=== PATIENT | female | born 1930 | race Caucasian/White ===

== ENCOUNTER 2018-03-20 09:56 | Observation (INO) ==
--- NOTE | 2018-03-20 10:25 | Emergency Department Note ---
Disposition Clinical Impression: Sick sinus syndrome Disposition: Admitted As Inpatient Condition: Fair Time of Disposition: 11:58 Arrhythmia/Palpitations HPI - General Chief Complaint: ED Arrhythmia/Palpitations Stated Complaint: chest pressure Time Seen by Provider: 03/20/18 10:13 Source: patient, EMS Mode of arrival: EMS Limitations: no limitations Nursing Notes Reviewed: Yes Vital Signs Reviewed: Yes - History of Present Illness HPI Narrative: 88-year-old female presents emergency department with concern for having palpitations and dizziness. Patient reported having that this morning. Brought in by EMS. Reported heart rate went to A. fib with RVR in the 170s. Stated that she also bradycardia down into the 30s. Patient reporting no symptoms at this time. No chest pain, pressure, tightness, shortness of breath. No nausea or vomiting. Does report history of having a stent. States that she was told at one time that she may have A. fib with RVR, but a leg assembler that she had a [place] confirm that it was not. - Related Data Allergies Allergy/AdvReac Type Severity Reaction Status Date / Time acetaminophen [From Vicodin] Allergy Palpitation Verified 03/20/18 10:24 s hydrocodone [From Vicodin] Allergy Palpitation Verified 03/20/18 10:24 s metronidazole [From Flagyl] Allergy Rash Verified 03/20/18 10:24 All systems ED: reviewed and negative except as stated. Review of Systems: As Per HPI Constitutional: Denies: fever Cardiovascular: Reports: palpitations. Denies: syncope Respiratory: Denies: cough, dyspnea, wheezes Gastrointestinal: Denies: abdominal pain, nausea, vomiting Genitourinary: Denies: urgency, dysuria, frequency Musculoskeletal: Denies: back pain Integumentary: Denies: rash Neurological: Reports: other (dizziness) Endocrine: Denies: fatigue Past Medical History - Past Medical History Medical history: Reports: atrial fibrillation, cancer, hyperlipidemia, hypertension, myocardial infarction Psychiatric history: Reports: no psych history - Social History Smoking Status: Former smoker Alcohol use: Reports: none Drug use: Reports: none Physical Exam - General General appearance: alert, in no apparent distress - Head Head exam: normocephalic - Eye Eye exam: Present: EOMI - ENT ENT exam: normal oropharynx - Neck Neck exam: Present: trachea midline - Chest Chest inspection: Present: symmetric chest wall rise - Respiratory Respiratory exam: Present: normal lung sounds bilaterally. Absent: respiratory distress - Cardiovascular Cardiovascular exam: Present: regular rate, normal rhythm, normal heart sounds - Abdominal Exam Abdominal exam: Present: soft, Non-Tender. Absent: distention, guarding, rebound, rigidity - Extremities Exam Extremities exam: Present: normal capillary refill - Back Exam Back exam: Present: normal inspection - Neurological Exam Neurological exam: Present: alert, oriented X3 - Psychiatric Psychiatric exam: Present: normal affect, normal mood - Skin Skin exam: Present: warm, dry, intact, normal color. Absent: rash Course Vital Signs Temperature 97.3 F L 03/20/18 10:05 Pulse Rate 72 03/20/18 10:05 Respiratory Rate 19 03/20/18 10:05 Blood Pressure 117/53 03/20/18 10:05 O2 Sat by Pulse Oximetry 94 03/20/18 10:05 Temperature 97.3 F L 03/20/18 10:05 Pulse Rate 69 03/20/18 11:06 Respiratory Rate 20 03/20/18 11:06 Blood Pressure 104/42 03/20/18 11:06 O2 Sat by Pulse Oximetry 94 03/20/18 11:06 Oxygen Delivery Oxygen Delivery Room Air Arrhythmia/Palpitations - [facility] Narrative Medical decision making narrative: 88 year old female presents to the emergency department with concern for palpitations, dizziness, with concern for heartrate in the 170s bradying down into the 30s. Our ECG reveals concerns for sick sinus syndrome. Troponin is within normal limits. Chest x-ray is normal. Patient has mild elevated creatinine at 1.34. No. He states he compare to. Gave patient 1 L of fluids. Normal saline. I spoke with the leg assembler, Dr. Cat. He requested that patient be held nothing by mouth at this time. Patient met the hospital as Dr. Wyatt who agreed to accept patient for admission. Patient agree with plan. Was heme an amply stable, heart rate in the 80s throughout her emergency department stay with no symptoms of palpitations, dizziness, chest tightness. Chest X-Ray 03/20/18 10:23 IMPRESSION: No acute process. D/ / Sai Echeverria MD / Sai Echeverria MD Interpreting Provider: Sai Echeverria MD Vital Signs Temperature 97.3 F L 03/20/18 10:05 Pulse Rate 72 03/20/18 10:05 Respiratory Rate 19 03/20/18 10:05 Blood Pressure 117/53 03/20/18 10:05 O2 Sat by Pulse Oximetry 94 03/20/18 10:05 Temperature 97.3 F L 03/20/18 10:05 Pulse Rate 69 03/20/18 11:06 Respiratory Rate 20 03/20/18 11:06 Blood Pressure 104/42 03/20/18 11:06 O2 Sat by Pulse Oximetry 94 03/20/18 11:06 Oxygen Delivery Oxygen Delivery Room Air - Lab Data Result diagrams: 03/20/18 10:08 03/20/18 10:08 Lab Results 03/20/18 03/20/18 03/20/18 Range/Units 10:08 10:08 10:08 WBC 12.7 H (4.3-11.1) K/mcL RBC 5.16 H (3.82-4.97) M/mcL Hgb 15.6 H (11.5-15.4) g/dL Hct 47.1 H (35.3-44.9) % MCV 91.3 (83.0-100.0) fL MCH 30.2 (28.0-33.3) pg MCHC 33.1 (31.6-35.5) g/dL RDW 14.0 (11.5-14.5) % Plt Count 276 (140-400) K/mcL MPV 12.1 (9.4-12.4) fL Immature Gran % 0.5 (0-4) % Seg Neutrophils % 67.2 % Lymphocytes % 21.7 % Monocytes % 7.6 % Eosinophils % 2.8 % Basophils % 0.2 % Neutrophils # 8.5 (1.6-8.9) K/mcL Lymphocytes # 2.8 (0.6-4.6) K/mcL Monocytes # 1.0 (0.0-1.3) K/mcL Eosinophils # 0.4 (0.0-0.6) K/mcL Basophils # 0.0 (0.0-0.2) K/mcL PT 10.8 (9.4-12.1) Seconds INR 1.0 APTT 28.2 (26.0-36.0) Seconds Sodium 136 (136-145) mEq/L Potassium 3.5 (3.5-5.1) mEq/L Chloride 98 (98-107) mEq/L Carbon Dioxide 29 (23-29) mEq/L BUN 36 H (8-23) mg/dL Creatinine 1.34 H (0.60-1.20) mg/dL Est GFR ( Amer) 45 L (> 60) Est GFR (Non-Af Amer) 37 L (> 60) BUN/Creatinine Ratio 27 H (6-26) Glucose 173 H (70-105) mg/dL Calculated Osmolality 294 (280-300) Calcium 9.5 (8.6-10.3) mg/dL Troponin I 0.03 (< 0.04) ng/mL - EKG Data EKG attestation: Yes I reviewed and interpreted this EKG. EKG results narrative: EKG #1 10:09 Heart rate: Variable from the 150s to 60 bpm. MI 141 ms, QRS duration 85 ms, QT 313 ms, normal axis. A. fib with RVR with sinus bradycardia. Concern for sick sinus syndrome. EKG #2 10:09 same as previous EKG. Concern for sick sinus syndrome. Attestation Statement - Attestation Attestation: I examined this patient and my medical decision-making was reviewed with the Resident Physician, Dr. Salazar. I agree with the documented findings, disposition and treatment plan as described except to the extent set forth below. Patient is an 88-year-old white female with a history of known coronary disease with remote heart catheter who presents the emergency department by EMS today after she experienced sudden onset palpitations chest tightness, mild shortness of breath and diaphoresis. Patient had been feeling fine prior to this episode and said she "just did not feel right". Patient is feeling better now states the symptoms have resolved and she is "feeling much better". Currently denies any chest pain pressure or heaviness. Patient denies any history of rapid or slow heart rates and no irregular heart rates although she states she was told at one time that she had an irregular heartbeat after follow-up with her leg assembler she was told that her heart was fine. Patient is from [place] and she is here visiting her brother and does have an established leg assembler that she sees in the [facility]. I agree with patient's physical exam findings as documented. Vital signs are stable. On my assessment patient's resting comfortably at bedside with no complaints. It was reported by EMS that she had a heart rate in the 170s at one point in route to the ED and then had profound bradycardia in the 30s. Her EKG here did catch this transition from a tachycardia to bradycardia. During my assessment patient was normal sinus rhythm in the 80s and stable with no tachycardia or bradycardia. Patient was placed on pacer pads and cardiac monitoring IV was established she was provided aspirin and we had a full lab evaluation including cardiac studies and chest x-ray. Overall patient's workup in the ED is unremarkable and she is remained with a normal heart rate and blood pressure since arrival. Concerned with possible tachybradycardia syndrome explaining her symptoms prior to arrival. Patient will be admitted for further evaluation and cardiology was consulate from the ED. Patient remains hemodynamically stable at this time and he symptomatic.
[2018-03-20 10:32] LABS: Basophils % 0.2 %; Eosinophils # 0.4 K/mcL (0.0-0.6); Eosinophils % 2.8 %; Hematocrit 47.1 % (35.3-44.9); Hemoglobin 15.6 g/dL (11.5-15.4); Immature Granulocytes % 0.5 % (0-4); Lymphocytes # 2.8 K/mcL (0.6-4.6); Lymphocytes % 21.7 %; Mean Corpuscular HGB Conc 33.1 g/dL (31.6-35.5); Mean Corpuscular Hemoglobin 30.2 pg (28.0-33.3); Mean Corpuscular Volume 91.3 fL (83.0-100.0); Mean Platelet Volume 12.1 fL (9.4-12.4); Monocytes % 7.6 %; Neutrophils # 8.5 K/mcL (1.6-8.9); Platelet Count 276 K/mcL (140-400); Red Blood Count 5.16 M/mcL (3.82-4.97); Segmented Neutrophils % 67.2 %
[2018-03-20 10:37] LABS: Prothrombin Time 10.8 Seconds (9.4-12.1)
[2018-03-20 10:40] LABS: Activated Partial Thrombo Time 28.2 Seconds (26.0-36.0)
[2018-03-20 10:58] LABS: Calcium 9.5 mg/dL (8.6-10.3); Potassium 3.5 mEq/L (3.5-5.1); Troponin I 0.03 ng/mL (< 0.04)
[2018-03-20] MEDS ORDERED: 0.9 % Sodium Chloride 1,000 ML IVC ONE (10:59)
[2018-03-20 12:20] LABS: Thyroid Stimulating Hormone 1.207 mcIU/mL (0.340-5.600)
[2018-03-20] MEDS ORDERED: Naloxone 0.4 MG/ML INJ IVP PRN (13:17)
--- NOTE | 2018-03-20 13:23 | Electrophysiology Consult Note ---
Addendum entered and electronically signed by Stef Dupont CNP 03/22/18 09:42 : Up-date on EP recommendations, initial recommendation to start amiodarone by cardiology cafeteria monitor, once patient discussed with Dr. Nielsen he did not recommend amiodarone and agreed it should be discontinued. Patient was recommended to start beta-lisa after she spontaneously converted to NSR and no recurrent bradycardia was seen. She was recommended to start terminal system operator AC with eliquis as discussed. Addendum entered and electronically signed by Stef Dupont CNP 03/20/18 14:03 : EKG from ED reviewed. HR 119, atrial fibrillation with RVR, ST depression in inferior leads. QT/Qtc 313/441. Repeat EKG shows afib with RVR converting to sinus bradycardia with HR 30. Currently NSR. Start amiodarone. . Original Note: <Stef Dupont - Last Filed: 03/20/18 13:53> Date of Encounter: 03/20/18 Time of Encounter: 13:21 Assessment and Plan (1) Atrial fibrillation Status: Suspected Presents with new atrial fibrillation- reported to have afib with RVR and periods of slow ventricular response in ED. Appears to be new onset two days ago per symptoms. Awaiting reports to be sent up from ED. Recommended to start amiodarone with known history of CAD and bradycardia per general cardiology, discussed with Dr. Cat. Will start amiodarone once EKG available. TSH normal. Check TTE CHADS VASc= 5 (HTN, age2, gender, CAD). High risk for CVA. I discussed AC with coumadin verses NOAC. She agrees to start a NOAC and does not want coumadin. Eliquis sent to pharmacy for lynn check. WIll start lovenox in the meantime in case she needs any procedures during her stay. I will discuss further recommendations with Dr. Reddy Nielsen. Qualifiers: Atrial fibrillation type: unspecified Qualified Code(s): I48.91 - Unspecified atrial fibrillation (2) Tachy-denise syndrome Status: Acute Recommend trying rhythm control. If continued significant bradycardia will need to consider PPM. Discussion w patient/family: The assessment and plan as outlined above was discussed with the patient and/or family members who expressed understanding and agreement. All questions were answered. Thank you for involving us in the care of your patient. Please call with any questions. History of Present Illness Consult date: 03/20/18 Requesting physician: Cruzito Salazar Consult reason: new onset afib. Chief complaint: lightheadedness, chest tightness, SOB History of present illness: Ms. Jacobs is a 88 year old female with past medical history of PCI to her RCA in 2010, HTN, and HLD who presented with the c/o feeling lightheaded, SOB, and chest tightness for two days. She was found to have atrial fibrillation with slow ventricular response at times in the ED. She was recommended to start amiodarone by cardiology team and have EP consult. She denies prior history of afib or other arrhythmias. She traveled here three weeks ago to visit her brother and is planning on flying back Sunday. When she arrived here she developed cough and congestion. She was started on steroids and z-pack with improvement of her symptoms. Past Med Surg Social Fam HX - Past Medical History Attestation: Yes The following information was validated with the patient. Source: patient Medical history: cancer, hyperlipidemia, hypertension, myocardial infarction Psychiatric history: no psych history - Social History Smoking Status: Former smoker Alcohol use: none Drug use: none Medications and Allergies Amlodipine Besylate 10 mg PO DAILY 03/20/18 [History] Atorvastatin Calcium [Lipitor] 20 mg PO QPM 03/20/18 [History] Brimonidine Tartrate [Alphagan P] 1 drop LEFT EYE DAILY 03/20/18 [History] Clopidogrel [Plavix] 75 mg PO DAILY 03/20/18 [History] Dorzolamide/Timolol [Cosopt] 1 drop LEFT EYE DAILY 03/20/18 [History] Fluticasone Propionate Nasal [Flonase] 2 spr NS DAILY PRN 03/20/18 [History] Latanoprost [Xalatan] 1 drop LEFT EYE HS 03/20/18 [History] Losartan/Hydrochlorothiazide [Losartan-Hctz 100-25 mg Tab] 1 tab PO DAILY [History] Rabeprazole Sodium [Aciphex] 20 mg PO DAILY 03/20/18 [History] Metoprolol [Lopressor] 25 mg PO BID 30 Days #60 tablet 03/22/18 [Rx] 3 Allergy/AdvReac Type Severity Reaction Status Date / Time acetaminophen [From Vicodin] Allergy Palpitation Verified 03/20/18 10:24 s hydrocodone [From Vicodin] Allergy Palpitation Verified 03/20/18 10:24 s metronidazole [From Flagyl] Allergy Rash Verified 03/20/18 10:24 All Systems Review: The remainder of the systems were reviewed and are negative Physical Examination Vital Signs, Last 4 Hours Temp Pulse Resp BP Pulse Ox 03/20/18 12:45 98.7 F 74 16 123/70 96 03/20/18 12:07 18 111/53 General: Conversant, No Apparent Distress HEENT: Atraumatic, Normocephaly, Mucus Membranes Moist Neck: No JVD, Normal carotid pulses Cardiac: Other (Irregular) Lungs: Normal Breath Sounds, No Wheeze, Rales, Rhonchi Neuro: Alert and responsive, No focal deficits noted Abdomen: Soft, Non-Tender Skin: No rashes noted on visualized skin Musculoskeletal: No Chest Wall Tenderness Extremities: No Clubbing, No Cyanosis, No Edema, Normal Pulses Results 03/20/18 10:08 03/20/18 10:08 - Imaging and Cardiology Echo: report reviewed Consult Discharge Plan - Plan Instructions: Pacemaker (DC) Referrals: NONE,PCP [Primary Care Provider] - Prescriptions: Metoprolol [Lopressor] 25 mg PO BID 30 Days #60 tablet <Reddy Nielsen - Last Filed: 03/22/18 16:14> Date of Encounter: 03/22/18 - Attending Attestation I have personally performed a face to face evaluation on this patient. I have reviewed and agree with the care plan. History and Exam by me shows: New AF, had now converted to NSR. Would recommend anticoagulation and oral BBblocker. Can fu with primary welding machine operator ultrasonic. Assessment and Plan Discussion w patient/family: The assessment and plan as outlined above was discussed with the patient and/or family members who expressed understanding and agreement. All questions were answered. Thank you for involving us in the care of your patient. Please call with any questions. History of Present Illness History of present illness: Ms. Jacobs is a 88 year old female All Systems Review: The remainder of the systems were reviewed and are negative Physical Examination Vital Signs, Last 4 Hours Temp Pulse Resp BP Pulse Ox 03/22/18 15:22 98.0 F 46 18 94/52 96 Results 03/21/18 00:31 03/21/18 00:31
--- NOTE | 2018-03-20 13:34 | Internal Med History&Physical ---
Date of Encounter: 03/20/18 Time of Encounter: 12:30 Internal Medicine - H&P: HPI Chief complaint: Palpitations/Lightheadedness/Chest Pressure Admitted From: Home Plans for Post Hospital Care: Home History of present illness: Ms. Jacobs is a 88 year old female with past medical history significant for CAD with stent x1 in 2010, hypertension, hyperlipidemia, glaucoma, and acid reflux who presents for palpitations, lightheadedness, shortness of breath, and chest tightness that started today. She reports two episodes lasting only a few seconds. Denies any current treatment. No alleviating or exacerbating factors. Reports one other similar episode 2-3 days ago for same duration. Denies associated nausea, vomiting, abdominal pain, bowel or bladder changes. Currently asymptomatic and pain free at this time. Has been told by PCP that she has an irregular heart rhythm, but reports her youth director assures her that she does not. Patient is from [place], in town visiting [facility]. Follows with cardi[phone], last seen in January with a normal routine 6 month follow up. Reports having normal stress test and echocardiogram sometime last year. Was recently treated for respiratory infection with Azithromycin and Prednisone which she completed last dose Sunday and states her symptoms have completely resolved. ER reported EKG as atrial fibrillation with RVR with concerns for sick sinus syndrome, reported heart rate range from 30-170. Patient denies any known history of atrial fibrillation or decreased renal function. Cardiology at bedside at time of admission. Discussed patient with Dr Aragon. Past Med Surg Social Fam HX - Past Medical History Medical history: GERD, glaucoma, hyperlipidemia, hypertension, myocardial infarction Psychiatric history: no psych history - Social History Smoking Status: Former smoker Alcohol use: none Drug use: none Internal Medicine - H&P: Meds Amlodipine Besylate 10 mg PO DAILY 03/20/18 [History] Atorvastatin Calcium [Lipitor] 20 mg PO QPM 03/20/18 [History] Brimonidine Tartrate [Alphagan P] 1 drop LEFT EYE DAILY 03/20/18 [History] Clopidogrel [Plavix] 75 mg PO DAILY 03/20/18 [History] Dorzolamide/Timolol [Cosopt] 1 drop LEFT EYE DAILY 03/20/18 [History] Fluticasone Propionate Nasal [Flonase] 2 spr NS DAILY PRN 03/20/18 [History] Latanoprost [Xalatan] 1 drop LEFT EYE HS 03/20/18 [History] Losartan/Hydrochlorothiazide [Losartan-Hctz 100-25 mg Tab] 1 tab PO DAILY [History] Rabeprazole Sodium [Aciphex] 20 mg PO DAILY 03/20/18 [History] 3 Allergy/AdvReac Type Severity Reaction Status Date / Time acetaminophen [From Vicodin] Allergy Palpitation Verified 03/20/18 10:24 s hydrocodone [From Vicodin] Allergy Palpitation Verified 03/20/18 10:24 s metronidazole [From Flagyl] Allergy Rash Verified 03/20/18 10:24 All Systems PM: A 10-system review of systems was performed and is negative for pertinent findings except as documented above in the HPI. - Constitutional Vitals: Temp Pulse Resp BP Pulse Ox 98.7 F 74 16 123/70 96 03/20/18 12:45 03/20/18 12:45 03/20/18 12:45 03/20/18 12:45 03/20/18 12:45 Exam: General: Alert and oriented. Skin:Normal color, no rash, no lesions. HEENT:Pupils equal, round and reactive. Cardiovascular:Irregular rhythm. Normal S1 & S2, no rubs, murmurs or gallops. No JVD. Pulse regular. Lungs:Normal breath sounds, no wheezes or crackles. Abdomen:Soft, non-tender, no rigidity. Extremities:No deformity, no edema or tenderness, no joint swelling or clubbing. Neurological:Normal cognition and motor skills. Pulses:Carotid and radial pulses normal +2. Rest of the physical exam is non contributory. Internal Med - H&P Results - Labs CBC & Chem 7: 03/20/18 10:08 03/20/18 10:08 - Assessment and plan (1) Sick sinus syndrome Current Visit: Yes Status: Acute Assessment and plan: Cardiology consulted by ER, will await recommendations. Continuous wool fleece sorter. Cardiac diet, NPO at midnight. (2) Chest tightness Current Visit: Yes Status: Acute Assessment and plan: Initial troponin in ER negative, serial troponins ordered. Cardiology consulted. (3) Atrial fibrillation Current Visit: Yes Status: Suspected Assessment and plan: Cardiology consulted. Continuous wool fleece sorter. Qualifiers: Atrial fibrillation type: unspecified Qualified Code(s): I48.91 - Unspecified atrial fibrillation (4) Decreased renal function Current Visit: Yes Status: Acute Assessment and plan: Repeat labs in a.m. Encourage oral intake. (5) Increased white blood cell count Current Visit: Yes Status: Acute Assessment and plan: Suspected secondary to recent respiratory infection treatment. No suspected infection at this time. Repeat labs in a.m. Qualifiers: Leukocytosis type: unspecified Qualified Code(s): D72.829 - Elevated white blood cell count, unspecified - Time Spent With Patient Total time spent is greater than 50% in coordination of care (as documented) at patient's floor/unit and/or counseling patient:
[2018-03-20] MEDS ORDERED: *HR* Amiodarone 200 MG TABLET PO SCH (13:45)
[2018-03-20] MEDS ORDERED: Fluticasone Propionate Nasal 50 MCG/SPRAY BOTTLE NS PRN (13:47)
[2018-03-20] MEDS ORDERED: *HR* Enoxaparin 80 MG/0.8 ML SYRINGE SQ ONE (14:20)
[2018-03-20] MEDS ORDERED: *HR* Enoxaparin 80 MG/0.8 ML SYRINGE SQ SCH (18:00)
[2018-03-20] MEDS: Latanoprost 2.5 ML BOTTLE LEFT EYE SCH (19:58)
[2018-03-21 00:49] LABS: Basophils # 0.1 K/mcL (0.0-0.2); Basophils % 0.4 %; Eosinophils # 0.5 K/mcL (0.0-0.6); Eosinophils % 4.2 %; Hematocrit 42.7 % (35.3-44.9); Hemoglobin 14.1 g/dL (11.5-15.4); Immature Granulocytes % 0.2 % (0-4); Lymphocytes # 3.5 K/mcL (0.6-4.6); Mean Corpuscular Hemoglobin 30.1 pg (28.0-33.3); Mean Corpuscular Volume 91.2 fL (83.0-100.0); Monocytes % 7.8 %; Neutrophils # 7.8 K/mcL (1.6-8.9); Platelet Count 225 K/mcL (140-400); Red Blood Count 4.68 M/mcL (3.82-4.97); Red Cell Distribution Width 13.9 % (11.5-14.5); Segmented Neutrophils % 60.4 %
[2018-03-21 01:04] LABS: BUN/Creatinine Ratio 31 (6-26); Blood Urea Nitrogen 31 mg/dL (8-23); Calcium 9.1 mg/dL (8.6-10.3); Carbon Dioxide 24 mEq/L (23-29); Chloride 103 mEq/L (98-107); Glucose 121 mg/dL (70-105); Osmolality,Calculated 294 (280-300); Potassium 3.7 mEq/L (3.5-5.1); Sodium 138 mEq/L (136-145); eGFR For Non-African Americans 52 (> 60)
[2018-03-21] MEDS ORDERED: *HR* Enoxaparin 80 MG/0.8 ML SYRINGE SQ SCH (06:00)
[2018-03-21] MEDS: amLODIPine 5 MG TABLET PO SCH (09:27)
[2018-03-21] MEDS: Losartan/HCTZ 50-12.5 TABLET PO SCH (09:27)
[2018-03-21] MEDS: Dorzolamide/Timolol OPTH 10 ML BOTTLE LEFT EYE SCH (09:34)
--- NOTE | 2018-03-21 11:41 | Electrophysiology ProgressNote ---
Date of Encounter: 03/21/18 Time of Encounter: 11:39 Assessment and Plan (1) Atrial fibrillation Current Visit: Yes Status: Suspected Presents with new onset atrial fibrillation- reported to have afib with RVR and periods of slow ventricular response in ED. Appears to be new onset two days ago per symptoms.Likely exacerbated by bronchitis. HR 145-30 bpm in ED. EKG shows atrial fibrillation with RVR and conversion to sinus bradycardia. Telemetry overnight shows NSR with no recurrent afib. Avg HR was 75 bpm. Lowest HR 50 bpm during nocturnal hours. TTE-LVEF 60%. Moderate left ventricular diastolic dysfunction. Normal right ventricular structure and function. Mildly dilated left atrium. Moderately thickened mitral valve leaflets. No evidence of pulmonary hypertension. TSH normal. Troponin negative x3. Recommend keeping her out of afib to avoid bradycardia that occurs when she converts to SR. Declines amiodarone. Discussed with Dr. Nielsen, we will start metoprolol 25 mg BID to help her maintain NSR. CHADS VASc= 5 (HTN, age2, gender, CAD). High risk for CVA. I discussed AC with coumadin verses NOAC. She agrees to start a NOAC and does not want coumadin. Eliquis RX filled and at bedside. Recommend stopping plavix and starting eliquis. Last PCI in 2010. She would like to hold off on starting eliquis until she returns home in [place]. She would like to continue asa and plavix for now. She voices understanding of increased risk of CVA. She is flying home sunday and will call her security lead as soon as she gets home. Cardiology will likely sign off after she is seen by Dr. Nielsen today. Call with questions. Qualifiers: Atrial fibrillation type: unspecified Qualified Code(s): I48.91 - Unspecified atrial fibrillation (2) Tachy-denise syndrome Current Visit: Yes Status: Acute See plan above. Discussion w patient/family: The assessment and plan as outlined above was discussed with the patient and/or family members who expressed understanding and agreement. All questions were answered. Thank you for involving us in the care of your patient. Please call with any questions. Subjective Principal diagnosis: tachybrady syndrome Interval history: Ms. Jacobs states that she is feeling better. Denies chest pain or palpitations. She declined to take amiodarone as recommended. Objective Vital Signs, Last 4 Hours Temp Pulse Resp BP Pulse Ox 03/21/18 10:38 97.6 F 70 18 151/68 97 03/21/18 07:57 99.0 F 78 18 128/70 95 General: Conversant, No Apparent Distress HEENT: Atraumatic, Normocephaly, Mucus Membranes Moist Neck: No JVD, Normal carotid pulses Cardiac: Reg Rate and Rhythm, Normal S1 and S2, No Murmur Lungs: Normal Breath Sounds, No Wheeze, Rales, Rhonchi Neuro: Alert and responsive, No focal deficits noted Abdomen: Soft, Non-Tender Skin: No rashes noted on visualized skin Musculoskeletal: No Chest Wall Tenderness Extremities: No Clubbing, No Cyanosis, No Edema, Normal Pulses Results 03/21/18 00:31 03/21/18 00:31 Lab Results 03/20/18 03/21/18 03/21/18 18:00 00:31 00:31 WBC 12.9 H Hgb 14.1 D Hct 42.7 Plt Count 225 Sodium Potassium Chloride Carbon Dioxide BUN Creatinine Glucose Calcium Troponin I 0.03 0.03 03/21/18 00:31 WBC Hgb Hct Plt Count Sodium 138 Potassium 3.7 Chloride 103 Carbon Dioxide 24 BUN 31 H Creatinine 1.01 Glucose 121 H Calcium 9.1 Troponin I - Imaging and Cardiology Echo: report reviewed - EKG Interpretation EKG results cardiology: personally reviewed Consult Discharge Plan - Plan Referrals: NONE,PCP [Primary Care Provider] -
--- NOTE | 2018-03-21 14:23 | Electrocardiograph Report ---
[place] [address] Test Date: 2018-03-20 Pat Name: Haylee Jacobs Department: EXAM12 Room: 2A14 Gender: F Assistant Men'S Soccer Coach: : 1930 Requested By: Cruzito Salazar Order Number: [id number] Reading MD: Robert Oh Measurements Intervals [place] Rate: 128 P: MD: QRS: 82 QRSD: 85 T: 248 QT: 286 QTc: 418 Interpretive Statements Atrial fibrillation Repolarization abnormality, prob rate related Electronically Signed On 03-21-2018 14:21:49 EDT by Robert hO
--- NOTE | 2018-03-21 14:33 | Electrocardiograph Report ---
[address] [place] [address] Test Date: 2018-03-20 Pat Name: Haylee Jacobs Department: 109 Room: 2A14 Gender: Apprentice Plumber: : 1930 Requested By: Simon Aragon Order Number: [id number] Reading MD: Robert Oh Measurements Intervals [place] Rate: 63 P: CO: 0 QRS: 24 QRSD: 119 T: 269 QT: 447 QTc: 455 Interpretive Statements ATRIAL FIBRILLATION INCOMPLETE RIGHT BUNDLE BRANCH BLOCK NONSPECIFIC T WAVE ABNORMALITIES Electronically Signed On 03-21-2018 14:32:40 EDT by Robert Oh
--- NOTE | 2018-03-21 15:38 | Internal Med Progress Note ---
Hospitalist Progress Note - Encounter Date of Encounter: 03/21/18 Time of Encounter: 15:35 - Subjective Interval History: Patient seen and evaluated at bedside. She reports feeling well, denies chest pain, or shortness of breath. Also denied lightheadedness or dizziness. - Exam Vitals: Temp Pulse Resp BP Pulse Ox 97.6 F 70 18 151/68 97 03/21/18 10:38 03/21/18 10:38 03/21/18 10:38 03/21/18 10:38 03/21/18 10:38 Exam: General: Alert and oriented x4. in no acute distress. Cardiovascular: RRR, Normal S1 & S2, no rubs, murmurs or gallops. JVD about 6cm. Lungs: CTA bilaterally, no wheezes or crackles. Abdomen: Obese, Soft, non-tender, no rigidity. Extremities: No deformity, no edema or tenderness, no joint swelling or clubbing. Neurological: Normal cognition and motor skills. Rest of the physical exam is non contributory - Assessment and Plan (1) Atrial fibrillation Current Visit: Yes Status: Acute Assessment and Plan: Patient evaluated by the tobacco sample puller who recommended to start the patient on oral anticoagulant due to High CHADSVASC score, also started the patient on metoprolol 25 mg by mouth twice a day. Patient preferred to start on an anticoagulant after discussing with her notch machine operator in [place]. Will keep patient in the hospital today for 24 more hours of telemetry monitoring. Plan to be DC tomorrow morning. (2) Tachy-denise syndrome Current Visit: Yes Status: Acute Assessment and Plan: Plan of care as above (3) Leukocytosis Current Visit: Yes Status: Acute Assessment and Plan: No signs of acute infection. Patient recently treated with PO steroids and azithromycin for a bronchitis (4) CAROL (acute kidney injury) Current Visit: Yes Status: Suspected (5) CAD (coronary artery disease) Current Visit: Yes Status: Acute Assessment and Plan: Continue plavix and atorvastatin. (6) HTN (hypertension) Current Visit: Yes Status: Acute Assessment and Plan: BP well controlled. Continue Amlodipine and HCTZ/losartan. DVT Prophylaxis: On full dose lovenox due to A.Fib. - Summary of Assessment and Plan Summary of Assessment and Plan: Patient to remain in the hospital for 24 more hours to telemetry monitoring. Potential DC tomorrow. - Time Spent with Patient Total time spent is greater than 50% in coordination of care (as documented) at patient's floor/unit and/or counseling patient: 25 - 35 minutes Plan of Care Discussed with: patient (the nurse.) Internal Medicine: Result - Labs CBC & Chem 7: 03/21/18 00:31 03/21/18 00:31 Labs: Short CBC 03/21/18 Range/Units 00:31 WBC 12.9 H (4.3-11.1) K/mcL Hgb 14.1 D (11.5-15.4) g/dL Hct 42.7 (35.3-44.9) % Plt Count 225 (140-400) K/mcL Neutrophils # 7.8 (1.6-8.9) K/mcL BMP 03/21/18 00:31 Sodium 138 Potassium 3.7 Chloride 103 Carbon Dioxide 24 BUN 31 H Creatinine 1.01 Glucose 121 H Calcium 9.1 Cardiac Enzymes 03/20/18 03/21/18 Range/Units 18:00 00:31 Troponin I 0.03 0.03 (< 0.04) ng/mL - ABG Interpretation ABG results: PT/INR, D-dimer PT 10.8 Seconds (9.4-12.1) 03/20/18 10:08 - Impressions Impressions Echocardiogram 03/20/18 13:57 Impressions: LVEF 60%. Moderate left ventricular diastolic dysfunction. Normal right ventricular structure and function. Mildly dilated left atrium. Moderately thickened mitral valve leaflets. No evidence of pulmonary hypertension. Left Ventricular Wall Motion: Rest Echo Findings All wall segments showed normal motion. Findings: Study Quality * Technically sub-optimal due to poor echocardiographic windows. ECG Findings * Normal sinus rhythm. Left Ventricle * LVEF 60%. * Moderate left ventricular diastolic dysfunction. Right Ventricle * Normal right ventricular structure and function. Left Atrium * Mildly dilated left atrium. Right Atrium * Normal right atrial size. Interatrial Septum * No evidence of PFO by color Doppler. Aortic Valve * Trileaflet aortic valve. * Normal aortic valve structure. * No aortic regurgitation. * No aortic stenosis. Mitral Valve * Moderately thickened mitral valve leaflets. * No mitral regurgitation. * No mitral stenosis. Tricuspid Valve * Normal tricuspid valve structure. * No tricuspid regurgitation. * No tricuspid stenosis. * No evidence of pulmonary hypertension. Pulmonic Valve * Normal pulmonic valve structure. * No pulmonic regurgitation. Aorta * Normally sized aortic root. Pericardium * There is a trivial pericardial effusion present. IVC * Normal IVC dimensions and inspiratory collapse. Pulmonary Artery * Normal visualized portions of the main pulmonary artery. Consult Discharge Plan - Plan Referrals: NONE,PCP [Primary Care Provider] - (1) Atrial fibrillation Qualifiers: Atrial fibrillation type: unspecified Qualified Code(s): I48.91 - Unspecified atrial fibrillation (3) Leukocytosis Qualifiers: Leukocytosis type: unspecified Qualified Code(s): D72.829 - Elevated white blood cell count, unspecified (5) CAD (coronary artery disease) Qualifiers: Coronary Disease-Associated Artery/Lesion type: unspecified vessel or lesion type [place] vs. transplanted heart: unspecified whether [place] or transplanted heart Associated angina: angina presence unspecified Qualified Code(s): I25.10 - Atherosclerotic heart disease of [place] coronary artery without angina pectoris (6) HTN (hypertension) Qualifiers: Hypertension type: unspecified Qualified Code(s): I10 - Essential (primary) hypertension
[2018-03-21] MEDS: Latanoprost 2.5 ML BOTTLE LEFT EYE SCH (21:04)
[2018-03-22] MEDS ORDERED: *HR* Enoxaparin 80 MG/0.8 ML SYRINGE SQ SCH (06:00)
--- NOTE | 2018-03-22 07:55 | Discharge Summary ---
- NOTES TO OUTPATIENT PROVIDER Notes to Outpatient Provider: Follow-up with your cushion spring assembler within a week of hospital discharge. Date of Encounter: 03/22/18 Time of Encounter: 07:53 - Discharge Diagnosis (1) Atrial fibrillation Priority: Primary Status: Resolved Qualifiers: Atrial fibrillation type: unspecified Qualified Code(s): I48.91 - Unspecified atrial fibrillation (2) Tachy-denise syndrome Priority: Secondary Status: Acute (3) Leukocytosis Priority: Secondary Status: Acute Qualifiers: Leukocytosis type: unspecified Qualified Code(s): D72.829 - Elevated white blood cell count, unspecified (4) CAROL (acute kidney injury) Priority: Secondary Status: Resolved (5) CAD (coronary artery disease) Priority: Secondary Status: Chronic Qualifiers: Coronary Disease-Associated Artery/Lesion type: unspecified vessel or lesion type [place] vs. transplanted heart: unspecified whether [place] or transplanted heart Associated angina: angina presence unspecified Qualified Code(s): I25.10 - Atherosclerotic heart disease of [place] coronary artery without angina pectoris (6) HTN (hypertension) Priority: Secondary Status: Chronic Qualifiers: Hypertension type: unspecified Qualified Code(s): I10 - Essential (primary ) hypertension Hospital course: Ms. Jacobs is a 88 year old female past medical history significant for coronary artery disease, hypertension, hyperlipidemia and glaucoma. Patient presented to the emergency room due to lightheadedness and shortness of breath associated with chest tightness which she reported had been happening for the past 2-3 days. In the emergency room patient was found to be on A. fib and RVR with a concern of sick sinus syndrome due to her heart rate ranging from 30 to 170s. Ornament Maker Hand evaluated the patient and recommended to start the patient on metoprolol and an oral anticoagulant. Patient reported that she wanted to discuss these findings with her cushion spring assembler in [place] before restarting the oral anticoagulant. Patient is hemodynamically stable to be discharged home. Recommended to follow- up with her cushion spring assembler within a week of hospital discharge. - Time Spent with Patient Total time spent providing and/or coordinating discharge services: Less than 30 minutes - Discharge Medications Prescriptions: Metoprolol [Lopressor] 25 mg PO BID 30 Days #60 tablet Home Medications: Amlodipine Besylate 10 mg PO DAILY 03/20/18 [History] Atorvastatin Calcium [Lipitor] 20 mg PO QPM 03/20/18 [History] Brimonidine Tartrate [Alphagan P] 1 drop LEFT EYE DAILY 03/20/18 [History] Clopidogrel [Plavix] 75 mg PO DAILY 03/20/18 [History] Dorzolamide/Timolol [Cosopt] 1 drop LEFT EYE DAILY 03/20/18 [History] Fluticasone Propionate Nasal [Flonase] 2 spr NS DAILY PRN 03/20/18 [History] Latanoprost [Xalatan] 1 drop LEFT EYE HS 03/20/18 [History] Losartan/Hydrochlorothiazide [Losartan-Hctz 100-25 mg Tab] 1 tab PO DAILY [History] Rabeprazole Sodium [Aciphex] 20 mg PO DAILY 03/20/18 [History] Metoprolol [Lopressor] 25 mg PO BID 30 Days #60 tablet 03/22/18 [Rx] Allergies/Adverse Reactions: 3 Allergy/AdvReac Type Severity Reaction Status Date / Time acetaminophen [From Vicodin] Allergy Palpitation Verified 03/20/18 10:24 s hydrocodone [From Vicodin] Allergy Palpitation Verified 03/20/18 10:24 s metronidazole [From Flagyl] Allergy Rash Verified 03/20/18 10:24 Date of admission: 03/20/18 11:31 Primary care physician: PCP NONE Consults: 03/20/18 13:36 Consult to Electrophysiology (EP) [CONS] Routine Consulting Provider: Electrophysiology Rose Reason for Consult: tachy-denise Call Completed: Yes - Constitutional Vitals: Temp Pulse Resp BP Pulse Ox 97.9 F 53 17 143/61 94 03/22/18 07:20 03/22/18 07:20 03/22/18 07:20 03/22/18 07:20 03/22/18 07:20 Exam: General: Alert and oriented x4. in no acute distress. Cardiovascular: RRR, Normal S1 & S2, no rubs, murmurs or gallops. JVD about 6cm. Lungs: CTA bilaterally, no wheezes or crackles. Abdomen: Obese, Soft, non-tender, no rigidity. Extremities: No deformity, no edema or tenderness, no joint swelling or clubbing. Neurological: Normal cognition and motor skills. Rest of the physical exam is non contributory - Patient Status Disposition: Home, Self-Care Condition: Good Functional capacity at discharge: independent ambulation Overall status at discharge: patient is back to baseline - Discharge Instructions Follow Up With: NONE,PCP [Primary Care Provider] - - Diet and Activity Activity: resume usual activities as tolerated Diet: advance to your usual diet
[2018-03-22] MEDS: Losartan/HCTZ 50-12.5 TABLET PO SCH (09:38)
[2018-03-22] MEDS: amLODIPine 5 MG TABLET PO SCH (09:38)
[2018-03-22 15:22] VITALS: BP 94/52
[2018-03-22] MEDS: Dorzolamide/Timolol OPTH 10 ML BOTTLE LEFT EYE SCH (15:27)
== END 2018-03-22 16:04 | disposition home or self-care (01) ==
LOC: 2ANU 09:56 → EMEROOARM 09:56 → SUATTDRO 11:31 → 2ANU 12:17
PROVIDERS: ADMIT Internal Medicine; ATTEND Internal Medicine